=== PATIENT | male | born 1995 | race Caucasian/White ===

== ENCOUNTER 2019-02-18 14:01 | Observation (INO) | payer OTHER ==
--- NOTE | 2019-02-18 15:52 | ED ---
Abdominal Pain/Male - HPI Summary HPI Summary: This pt is a 24 y/o male presenting to [facility] c/o abd pain for the past 30 hours. Pt reports his pain has localized now in the right lower abdomen. He describes his pain as sharp and as waxing and waning in intensity. He rates his abd pain between a 7 and 9 out of 10 in severity. Pt reports he could not sleep last night secondary to pain. Denies nausea, vomiting, chest pain, SOB. Denies any past GI hx. Denies any PMHx or PSHx. Pt admits to rare alcohol use but denies tobacco and drug use. - History of Current Complaint Chief Complaint: EDAbdPain Stated Complaint: RIGHT SIDE ABDOMINAL PAIN PER PT Time Seen by Provider: 02/18/19 15:45 Hx Obtained From: Patient Onset/Duration: Lasting Hours, Still Present Timing: Lasting Hours Severity Currently: Severe Pain Intensity: 9 Pain Scale Used: 0-10 Numeric Location: Discrete At: RLQ Radiates: No Character: Sharp Aggravating Factor(s): Nothing Alleviating Factor(s): Nothing Associated Signs And Symptoms: Negative: Fever, Nausea, Vomiting - Allergies/Home Medications Allergies/Adverse Reactions: Allergies Allergy/AdvReac Type Severity Reaction Status Date / Time No Known Allergies Allergy Verified 02/18/19 14:07 PMH/Surg Hx/FS Hx/Imm Hx Endocrine/Hematology History: Denies: Hx Diabetes Cardiovascular History: Denies: Hx Hypertension - Surgical History Surgical History: None Infectious Disease History: No Infectious Disease History: Denies: Traveled Outside the [place] in Last 30 Days - Family History Known Family History: Positive: Cardiac Disease - grandparents - Social History Alcohol Use: Occasionally Substance Use Type: Reports: None Smoking Status (MU): Never Smoked Tobacco Review of Systems Negative: Fever Negative: Chest Pain Negative: Shortness Of Breath Positive: Abdominal Pain. Negative: Vomiting, Nausea All Other Systems Reviewed And Are Negative: Yes Physical Exam - Summary Physical Exam Summary: VITAL SIGNS: Reviewed. GENERAL: Patient is a well-developed and nourished male who is lying comfortable in the stretcher. Patient is not in any acute respiratory distress. HEAD AND FACE: Normocephalic and atraumatic. EYES: PERRLA, EOMI x 2, No injected conjunctiva. EARS: Hearing grossly intact. Ear canals and tympanic membranes are WNL. MOUTH: Oropharynx within normal limits. NECK: Supple, trachea is midline, no adenopathy, no JVD. CHEST: Symmetric, no tenderness at palpation. LUNGS: Clear to auscultation bilaterally. No wheezing or crackles. CVS: RRR, S1 and S2 present, no murmurs or gallops appreciated. ABDOMEN: Soft, right sided tenderness, more so in the right lower quadrant. No signs of distention. Positive bowel sounds. No rebound, no guarding, and no masses palpated. No abdominal bruit or pulsations. EXTREMITIES: FROM in all major joints, no edema, no cyanosis or clubbing. NEURO: Alert and oriented x 3. No acute neurological deficits. Speech is normal. SKIN: Dry and warm. Triage Information Reviewed: Yes Vital Signs On Initial Exam: Initial Vitals Temp Pulse Resp BP Pulse Ox 98.0 F 92 16 80/47 97 02/18/19 14:03 02/18/19 14:03 02/18/19 14:03 02/18/19 14:03 02/18/19 14:03 Vital Signs Reviewed: Yes Procedures - Sedation Patient Received Moderate/Deep Sedation with Procedure: No Diagnostics - Vital Signs Vital Signs Temp Pulse Resp BP Pulse Ox 02/18/19 15:29 101.5 F 96 16 106/50 96 02/18/19 14:03 98.0 F 92 16 80/47 97 - Laboratory Result Diagrams: 02/18/19 16:28 02/18/19 16:28 Lab Statement: Any lab studies that have been ordered have been reviewed, and results considered in the medical decision making process. Abdominal Pain Male Course/Dx - Course Assessment/Plan: This patient is a 24-year-old male who presents to the emergency department with a chief complaint of having left-sided abdominal pain. results without any significant abnormality except for the wishes of 16.4, creatinine of 1.21, glucose 114, total bili 1.7, CRP of 55.9. In the ED course the patient was able fluids and he did not request any pain medications. Abdominopelvic CT impression: Pending. Patient will be signed out to Dr. Brito at shift change. He will follow the results of the abdominopelvic CT and further disposition for the patient. - Diagnoses Differential Diagnosis/HQI/PQRI: Appendicitis, Bowel Obstruction, Constipation, Diverticulitis Provider Diagnoses: Lower abdominal pain Discharge ED - Sign-Out/Discharge Documenting (check all that apply): Sign-Out Patient Signing out patient TO: Francois Medrano - pending CT Abdomen/Pelvis - Discharge Plan Condition: Stable Disposition: ADMITTED TO [facility] - Billing Disposition and Condition Condition: STABLE Disposition: Admitted to [facility] - Attestation Statements Document Initiated by Scribe: Yes Documenting Scribe: Shannon Mendez Provider For Whom Scribe is Documenting (Include Credential): Jr Lew MD Scribe Attestation: Shannon Grissom, scribed for Jr Lew MD on 02/19/19 at 1846. Scribe Documentation Reviewed: Yes Provider Attestation: The documentation as recorded by the Shannon angeles accurately reflects the service I personally performed and the decisions made by , Jr Lew MD Status of Scribe Document: Viewed
[2019-02-18] MEDS ORDERED: NS 0.9% 1000 ML** 1,000 ML IV ONE (16:06)
[2019-02-18 16:36] LABS: Hematocrit 44 % (42-52); Hemoglobin 15.2 g/dL (14.0-18.0); Mean Corpuscular HGB Conc 34 g/dL (31-36); Mean Corpuscular Hemoglobin 31 pg (27-31); Mean Corpuscular Volume 91 fL (80-94); Mean Platelet Volume 6.7 fL (7.4-10.4); Platelet Count 188 10^3/uL (150-450); Red Blood Count 4.87 10^6 /uL (4.18-5.48); Red Cell Distribution Width 13 % (10-15); White Blood Count 16.4 10^3/uL (3.5-10.8)
[2019-02-18 16:54] LABS: ALT 16 U/L (7-52); AST 16 U/L (13-39); Albumin 4.2 g/dL (3.2-5.2); Albumin/Globulin Ratio 1.5 (1-3); Alkaline Phosphatase 54 U/L (34-104); Anion Gap 6 mmol/L (2-11); BUN/Creatinine Ratio 14.9 (8-20); Blood Urea Nitrogen 18 mg/dL (6-24); C Reactive Protein 55.91 mg/L (<8.01); CO2 Carbon Dioxide 29 mmol/L (22-32); Calcium 9.3 mg/dL (8.6-10.3); Chloride 101 mmol/L (101-111); EGFR African American 90.7 (>60); Globulin 2.8 g/dL (2-4); Glucose 114 mg/dL (70-100); Potassium 3.9 mmol/L (3.5-5.0); Sodium 136 mmol/L (135-145)
[2019-02-18] MEDS ORDERED: Iohexol 300* (CONTRAST) 10 ML SDV IV ONE (17:32)
[2019-02-18 17:58] LABS: ABS Lymphocytes 0.2 10^3/ul (1.0-4.8); ABS Monocytes 0.6 10^3/ul (0-0.8); ABS Neutrophils 15.6 10^3/ul (1.5-7.7); Lymphocyte % 1.5 %
--- NOTE | 2019-02-18 19:23 | ED ---
Progress - Progress Note Progress Note: Patient is received as a sign out from Dr. Lew to Dr. Medrano at 1900 02/18/[address] ABD/PEL results CT ABD/PEL IMPRESSION: 1. Findings consistent with acute appendicitis. No evidence of perforation or abscess. 2. Small amount of free fluid in the pelvis. 3. Possible mild gallbladder wall thickening. No pericholecystic stranding or calcified gallstones. Consider correlation with clinical exam and lab values. Right upper quadrant ultrasound may be helpful to further assess if clinically indicated. 4.Chronic bilateral L5 pars interarticularis defects. No subluxation. THIS REPORT WAS REVIEWED BY DR. MEDRANO. Re-Evaluation - Re-Evaluation First Eval Re-Evaluation Time: 19:38 Comment: Results of CT were discussed with patient, he is agreeable with surgery. Patient is resting comfortably at this time. Course/Dx - Course Course Of Treatment: Patient is received as a sign out from Dr. Lwe to Dr. Medrano at 1900 02/18/[address] ABD/PEL results. CT ABD/PEL IMPRESSION: 1. Findings consistent with acute appendicitis. No evidence of perforation or. abscess. 2. Small amount of free fluid in the pelvis. 3. Possible mild gallbladder wall thickening. No pericholecystic stranding or. calcified gallstones. Consider correlation with clinical exam and lab values. Right upper quadrant ultrasound may be helpful to further assess if clinically. indicated. 4.Chronic bilateral L5 pars interarticularis defects. No subluxation. Patient's case was discussed with Dr. Hensley, Dr. Hensley to admit the patient to his services. - Diagnoses Provider Diagnoses: Lower abdominal pain - Provider Notifications Discussed Care Of Patient With: Jorje Hensley Time Discussed With Above Provider: 20:02 Instructed by Provider To: Other - Patient's case was discussed with Dr. Hensley , Dr. Hensley to admit the patient to his services. Discharge ED - Sign-Out/Discharge Documenting (check all that apply): Patient Departure - admit, Receiving Sign- Out Receiving patient FROM: Jr Lew - Discharge Plan Condition: Stable Disposition: ADMITTED TO [facility] - Billing Disposition and Condition Condition: STABLE Disposition: Admitted to [facility] - Attestation Statements Document Initiated by Scribe: Yes Documenting Scribe: RJ KRISHNA Provider For Whom Scribe is Documenting (Include Credential): PRIYA MEDRANO MD Scribe Attestation: I, RJ KRISHNA, scribed for PRIYA MEDRANO MD on 02/20/19 at 0453. Scribe Documentation Reviewed: Yes Provider Attestation: The documentation as recorded by the colleenibeRJ accurately reflects the service I personally performed and the decisions made by me, PRIYA MEDRANO MD Status of Scribe Document: Viewed
[2019-02-18] MEDS ORDERED: Piperacillin/Tazobac ADVAN(*) 3.375 GM in NS 0.9% 100 ML* 100 ML IVPB ONE (19:41)
[2019-02-18] MEDS ORDERED: NS 0.9% 1000 ML** 2,000 ML IV ONE (19:42)
[2019-02-18] MEDS ORDERED: Morphine 4 MG/ML VIAL (1 ml) 4 MG/ML VIAL IV ONE (20:07)
[2019-02-18 20:20] LABS: Urine Appearance Clear; Urine Bilirubin Negative (Negative); Urine Blood Negative (Negative); Urine Color Yellow; Urine Glucose Negative (Negative); Urine Ketones Trace (Negative); Urine Nitrite Negative (Negative); Urine Protein Negative (Negative); Urine Urobilinogen Negative (Negative)
[2019-02-18] MEDS ORDERED: Zosyn per Pharmacy* NOTE FOLLOW UP PRN (20:23)
[2019-02-18] MEDS ORDERED: D5W 1/2 NS KCl 20 Meq 1000 ML* 1,000 ML IV SCH (20:23)
[2019-02-18] MEDS ORDERED: NS 0.9% w/ 20 Meq KCL 1000 ML* 1,000 ML IV SCH (21:00)
[2019-02-18] MEDS ORDERED: fentaNYL* 50 MCG/ML 2 ML VIAL (100 MCG VIAL) ONE (23:33)
[2019-02-18] MEDS ORDERED: Midazolam* 1 MG/ML 5 ML VIAL (5 MG) ONE (23:33)
[2019-02-18] MEDS: ZOSYN 3.375 GM Q8H per EXTENDED INFUSION IVPB SCH ×2 (23:56)
[2019-02-19] MEDS ORDERED: Piperacillin/Tazobac (*) 3.375 GM BAG IVPB SCH
[2019-02-19] MEDS ORDERED: Buffered Lidocaine 1% SYRIN* 1 ML/SYRINGE INTRADERM ONE (00:10)
[2019-02-19] MEDS ORDERED: Naloxone* 0.4 MG/ML 1 ML VIAL IV PRN (00:50)
[2019-02-19] MEDS ORDERED: Acetaminophen IV 1GM/100ML * 1,000 MG/100 ML VIAL IVPB ONE (00:50)
[2019-02-19] MEDS ORDERED: HYDROmorphone INJ1* 1 MG/ML SYRINGE IV PRN (00:50)
[2019-02-19] MEDS ORDERED: DiMENhydriNATE IV* 50 MG/ML VIAL IV PUSH PRN (00:50)
[2019-02-19] MEDS ORDERED: Bupivacaine 0.25% EPI 200,000* 30 ML SDV ONE (00:52)
[2019-02-19] MEDS ORDERED: Rocuronium* 10 MG/ML VIAL ONE (01:14)
[2019-02-19] MEDS ORDERED: DiMENhydriNATE IV* 50 MG/ML VIAL ONE (01:20)
[2019-02-19] MEDS ORDERED: Ketorolac INJ* 30 MG/ML 1 ML VIAL ONE (01:20)
[2019-02-19] MEDS ORDERED: Ondansetron INJ* 2 MG/ML VIAL ONE (01:20)
[2019-02-19] MEDS ORDERED: Dexamethasone IV* 4 MG/ML 1 ML (4 MG) ONE (01:20)
[2019-02-19] MEDS ORDERED: Propofol* 10 MG/ML 20 ML BTL ONE (01:20)
[2019-02-19] MEDS ORDERED: Succinylcholine* 20 MG/ML 10 ML VIAL ONE (01:20)
[2019-02-19] MEDS ORDERED: fentaNYL* 50 MCG/ML 2 ML VIAL (100 MCG VIAL) ONE (01:26)
[2019-02-19] MEDS ORDERED: Acetaminophen IV 1GM/100ML * 100 ML ONE (01:57)
[2019-02-19] MEDS ORDERED: Ondansetron INJ* 2 MG/ML VIAL IV PRN (02:07)
[2019-02-19] MEDS ORDERED: Ibuprofen TAB* 600 MG PO PRN (02:07)
[2019-02-19] MEDS ORDERED: Acetaminophen TAB* 325 MG PO PRN (02:07)
[2019-02-19] MEDS ORDERED: oxyCODONE/Acetamin 5/325 MG* TAB PO PRN (02:07)
[2019-02-19] MEDS ORDERED: D5W 1/2 NS KCl 20 Meq 1000 ML* 1,000 ML IV SCH (02:11)
--- NOTE | 2019-02-19 02:13 | OP ---
Operative Report - Blank - Operative Report Date of Operation: 02/19/19 Note: PREOP DX: ACUTE APPENDICITIS POSTOP DX: SAME PROC: LAP APPENDECTOMY SURG:MECENAS ASSIST: NONE ANES: GET; EBL: MINIMAL IVF: LR SPEC: APPENDIX DRAIN: NONE COMPL:NONE FINDINGS: ACUTE APPENDICITIS WITHOUT RUPTURE OR GANGRENE
--- NOTE | 2019-02-19 05:04 | OP ---
CC: [facility] * DATE OF OPERATION: 02/19/19 - ROOM #331 DATE OF : 97 SURGEON: Jorje Hensley MD STRAIGHTENING PRESS OPERATOR: None. ANESTHESIA: General endotracheal. ANESTHESIOLOGIST: Daphne Pacheco MD PRE-OP DIAGNOSIS: Acute appendicitis. POST-OP DIAGNOSIS: Acute appendicitis. OPERATIVE PROCEDURE: Laparoscopic appendectomy. ESTIMATED BLOOD LOSS: Less than 20 mL. IV FLUIDS: Crystalloid. SPECIMEN: Appendix. DRAINS: None. COMPLICATIONS: None. COUNTS: Instrument, needle, and sponge counts correct. DESCRIPTION OF PROCEDURE: The patient was brought to the operating room and placed on the table supine. Sequential compression devices were placed on both lower extremities. General anesthesia was administered. He was positioned and padded appropriately. He received appropriate intravenous antibiotics on the floor. His abdomen was prepped and draped in the usual sterile fashion. Time- out was performed. Local anesthetic was infiltrated into the skin and soft tissue prior to making each incision. Entry to the abdomen was through a transumbilical vertical incision using an open technique. After accessing the peritoneal cavity, a 12- mm trocar was placed and carbon dioxide was insufflated to a pressure of 15 mmHg. Under direct visualization, a 5-mm trocar was placed in the suprapubic midline and in the left lower quadrant. The appendix was identified in the right lower quadrant. It was enrobed in omentum. This was pulled free and the appendix appeared to be hyperemic with no evidence of gangrene or perforation. The base of the appendix was identified. The appendix was elevated and then Endo FRANKLYN stapler with a diaz cartridge was used to divide the appendix and the appendix mesentery in one firing. Hemostasis was assured. The appendix was placed in a retrieval bag and retrieved through the umbilical site. The ports were then removed under direct visualization and carbon dioxide was released. The umbilicus was closed with 0 Vicryl in figure- of-eight fashion to approximate the fascia. Skin incisions were all closed with 4- 0 Monocryl in subcuticular fashion. DermaFlex applied. The patient tolerated the procedure well, was extubated, and transferred to Recovery in stable condition. [id number]/[facility] #: [id number] [facility]
[2019-02-19] MEDS: ZOSYN 3.375 GM Q8H per EXTENDED INFUSION IVPB SCH ×2 (08:06)
[2019-02-19 11:38] VITALS: BP 102/55
--- NOTE | 2019-02-19 13:22 | PN ---
Progress Note - Progress Note Date of Service: 02/19/19 Note: S: POD #0, s/p lap appy. Doing well. Pablo diet. No N/V. O: Vital Signs - 8 hr 02/19/19 02/19/19 02/19/19 07:23 08:00 09:33 Temperature 98.4 F 97.5 F Pulse Rate 60 85 Respiratory 12 18 16 Rate Blood Pressure 105/44 112/58 (mmHg) O2 Sat by Pulse 96 97 Oximetry 02/19/19 11:37 Temperature 98.2 F Pulse Rate 74 Respiratory 12 Rate Blood Pressure 102/55 (mmHg) O2 Sat by Pulse 100 Oximetry Gen: sitting up in bed; NAD Heart: reg Lungs: clear Abd: lap sites ok; soft; mild incisional tenderness only A: s/p lap appy for acute nonruptured appendicitis, doing well P: home today; parents will be staying a couple of days with him; instructions reviewed; office f/u next wk
--- NOTE | 2019-02-19 21:00 | DS ---
CC: Dr. Amalia Stauffer, [facility], [place], [place] * DISCHARGE SUMMARY: DATE OF ADMISSION: 02/19/19 DATE OF DISCHARGE: 02/19/19 ATTENDING SURGEON: Dr. Jorje Hensley.* (DICTATED BY VICENTE MCKEON) HOSPITAL COURSE: Please refer to admission history and physical and operative note for details. The patient was taken to the operating room in the early hours of 02/19/19 and underwent laparoscopic appendectomy for acute nonruptured appendicitis. He has had an uneventful postoperative course and as of the afternoon of 02/19/19, he is tolerating diet well and pain is well controlled. Vital signs are stable. See separate progress note. Instructions were reviewed regarding diet, wound care, and activity. A prescription for Percocet was e-sent to his pharmacy at [place]. He has a followup appointment with our office on 02/27/19. He is discharged to home with his parents in good condition. VICENTE MCKEON [id number]/[facility] #: [id number] [place]
== END 2019-02-19 15:15 | disposition home or self-care (01) ==
LOC: ED 14:01 → INTOOBSV 21:25 → SSU 21:25
PROVIDERS: ADMIT Surgery; ATTEND Surgery
DX: K35.80 Unspecified acute appendicitis (principal); R10.9 Unspecified abdominal pain
CPT/HCPCS: 36415; 74177; 80053; 81003; 83605; 83690; 85025; 86140; 88304; 96360; 96361; 96365; 99284; A9270-GY; C1776; G0378; J0330; J1100; J1240; J1885; J2250; J2270; J2405; J2543; J2704; J3010; Q9967

== ENCOUNTER 2019-02-20 10:07 | Emergency (ER) | payer OTHER ==
--- NOTE | 2019-02-20 10:27 | ED ---
HPI Febrile Illness - HPI Summary HPI Summary: 24 year old M referred to [facility] by Dr. Hensley's office accompanied by parents complains of fever since yesterday 02/19/19 s/p appendectomy. Patient had appendectomy yesterday 02/19/[address] Hensley. States he developed fever intermittently after appendectomy which became more persistent yesterday PM. Had fever 104.8F at 23:00 yesterday 02/19/19. Reports chills, intermittent nausea, no worsening abdominal pain. Reports "liquid-y" bowel movements but states they are more formed this morning than previous. Patient denies cough, rhinorrhea, sore throat, chest pain, shortness of breath, fecal or urinary dysfunction. Mother states they called Dr. Hensley's office this morning, was referred to his office or ED, and decided to go to ED. The patient rates the pain 2/10 in severity. Symptoms aggravated by nothing. Symptoms alleviated by Tylenol, last taken 23:00 02/19/19, and Advil, last taken 19:00 02/19/19. No OTC medications this morning prior to arrival. States he has had some water, chapin perry, cranberry juice, and waffles since the surgery. Hx common colds but today's sx are not similar to them. - History of Current Complaint Chief Complaint: EDFever Time Seen by Provider: 02/20/19 10:15 Hx Obtained From: Patient, Family/Fur Liner - parents Onset/Duration: Started Hours Ago, Still Present Timing: Constant, Intermittent Current Severity: Mild Pain Intensity: 2 Pain Scale Used: 0-10 Numeric Aggravating Factors: Nothing Alleviating Factors: OTC Medicine Associated Signs and Symptoms: Negative - increasing abdominal pain, cough, rhinorrhea, sore throat, chest pain, shortness of breath, fecal or urinary dysfunction, Chills, Nausea, Other: - "liquid-y" bowel movements - Allergy/Home Medications Allergies/Adverse Reactions: Allergies Allergy/AdvReac Type Severity Reaction Status Date / Time No Known Allergies Allergy Verified 02/20/19 10:09 PMH/Surg Hx/FS Hx/Imm Hx Endocrine/Hematology History: Denies: Hx Diabetes Cardiovascular History: Denies: Hx Hypertension Respiratory History: Reports: Hx Seasonal Allergies - Nasal [place] PRN History: Denies: Hx Renal Disease Sensory History: Reports: Hx Contacts or Glasses Denies: Hx Hearing Aid Opthamlomology History: Reports: Hx Contacts or Glasses - Surgical History Surgery Procedure, Year, and Place: [place] Teeth extraction 2017. Appendectomy 02/19/19 Hx Anesthesia Reactions: No Infectious Disease History: No Infectious Disease History: Denies: Traveled Outside the [place] in Last 30 Days - Family History Known Family History: Positive: Cardiac Disease - grandparents - Social History Alcohol Use: Occasionally Hx Substance Use: No Substance Use Type: Reports: None Hx Tobacco Use: No Smoking Status (MU): Never Smoked Tobacco Review of Systems Positive: Fever, Chills ENT: Negative - rhinorrhea Negative: Sore Throat Negative: Chest Pain Negative: Shortness Of Breath, Cough Gastrointestinal: Negative - worsening abdominal pain, fecal dysfunction Positive: Nausea, Other - "liquid-y" bowel movements Positive: no symptoms reported Positive: Arthralgia, Myalgia Negative: Headache All Other Systems Reviewed And Are Negative: Yes Physical Exam - Summary Physical Exam Summary: VITAL SIGNS: Reviewed. GENERAL: Patient is a well-developed and nourished male who is lying comfortable in the stretcher. Patient is not in any acute respiratory distress. HEAD AND FACE: Normocephalic and atraumatic. EYES: PERRLA, EOMI x 2, No injected conjunctiva. EARS: Hearing grossly intact. Ear canals and tympanic membranes are WNL. MOUTH: Oropharynx within normal limits. NECK: Supple, trachea is midline, no adenopathy, no JVD. CHEST: Symmetric, no tenderness at palpation. LUNGS: Clear to auscultation bilaterally. No wheezing or crackles. CVS: RRR, S1 and S2 present, no murmurs or gallops appreciated. ABDOMEN: Soft. There is tenderness in the right lower abdomen. Surgical scars are clean, dry, in tact. There is some slight lymphadenopathy in right inguinal area. EXTREMITIES: FROM in all major joints, no edema, no cyanosis or clubbing. NEURO: Alert and oriented x 3. No acute neurological deficits. Speech is normal. SKIN: Dry and warm. Triage Information Reviewed: Yes Vital Signs On Initial Exam: Initial Vitals Temp Pulse Resp BP Pulse Ox 98.8 F 88 18 128/62 96 02/20/19 10:02/20/19 10:02/20/19 10:09 02/20/19 10:09 02/20/19 10:09 Vital Signs Reviewed: Yes Procedures - Sedation Patient Received Moderate/Deep Sedation with Procedure: No Diagnostics - Vital Signs Vital Signs Temp Pulse Resp BP Pulse Ox 02/20/19 10:09 98.8 F 88 18 128/62 96 - Laboratory Result Diagrams: 02/20/19 10:54 02/20/19 10:54 Lab Statement: Any lab studies that have been ordered have been reviewed, and results considered in the medical decision making process. - Radiology CXR Radiology Interpretation Completed By: Radiologist Summary of Radiographic Findings: No evidence for pneumonia. No evidence for acute intrathoracic disease. ED physician has reviewed this report. - Ultrasound Abdomen Ultrasound Interpretation Completed By: Radiologist Summary of Ultrasound Findings: #. Normal sonographic appearance of the liver. #. Suggestion of mild biliary sludge at the gallbladder. Negative for cholelithiasis or secondary findings to suggest acute cholecystitis. #. Negative for biliary dilatation. #. Negative for ascites. #. Equivocal increased cortical echogenicity at the kidney which may be seen with medical renal disease. Correlate with renal function tests. ED physician has reviewed this report. Re-Evaluation - Re-Evaluation First Eval Re-Evaluation Time: 15:00 Comment: agrees to d/c Course/Dx - Course Assessment/Plan: This patient is a 24-year-old male who presents to the emergency department with a chief complaint of having fever. Patient had an appendectomy yesterday with Dr. Hensley and since the patient has been having fevers. Patient denies any headache, denies any neck pain, denies any URI symptoms or UTI symptoms. Patient had diarrhea but it is now improving. He denies any nausea/vomiting. He has been taking Tylenol or ibuprofen. Bryan ZHANG from surgery at bedside. He agrees with management at this time. In the ED course, the patient is febrile. Therefore, he was given IV fluids and ibuprofen. Blood test results without any significant abnormality except for hemoglobin of 41, platelets 115, INR 1.47, glucose 125, total bili is 1.8, AST is 121, AST is 168. Total protein 6.3 and BNP is 135. Lactic acid is normal. Dr. Hensley at bedside and agrees with work up. Recommends an infectious disease consult. I discussed the case with Dr. Alexis who agrees with current management and also recommends a Tick-Borne illness panel. UA negative for UTI. Hepatitis panel negative. [place] Screen negative. Bryan ZHANG spoke with Dr. Hensley and they requested for the patient to be discharged and followed up at their office. They think the patient is safe for discharge. I instructed the patient and their parents that if patient continue with fever or develop any other symptoms to return to the ED for further workup and management. Patient and parents understand and agree. At discharge, patient is hemodynamically stable and A+O x 3. - Febrile Illness Differential Diagnoses: Abscess, Bacteremia, Cellulitis, Endocarditis, GI Disease, Medication Reaction, Pneumonia, Pyelonephritis, Sepsis - Diagnoses Provider Diagnoses: Fever - Provider Notifications Discussed Care Of Patient With: Jason Clemens Time Discussed With Above Provider: 10:55 Instructed by Provider To: Other - Bryan Clemens, surgical PA, evaluted the patient and agrees with management at this time. 1300 Dr. Hensley, surgery, came to the ED to evaluate the patient and recommended consulting infectious disease. [address] Alexis, infectious disease, who recommends we send for tick borne illness panel, admission and observation, no antibiotics until we find out if he has an infection. 1343 Spoke with Bryan Clemens who will come to the ED to see the patient. 1447 Bryan Clemens came to the ED to reassess the patient, states that he reviewed all the bloodwork and understands the recommendations from Dr. Alexis. He requests for the patient to be discharged home with follow up on Saturday 02/24 in the office. Discharge ED - Sign-Out/Discharge Documenting (check all that apply): Patient Departure - Discharge - Discharge Plan Condition: Stable Disposition: HOME Meds/Orders/Equipment: CBC Auto Diff Time Frame: 02/24/19, Location: None Selected Comprehensive Metabolic Panel [CHEM] Time Frame: 02/24/19, Location: None Selected Patient Education Materials: Fever in Adults (ED) Referrals: Jason Clemens PA [Physician Switchboard Operator Receptionist] - 02/24/19 Jorje Hensley MD [Medical Doctor] - 02/24/19 Additional Instructions: Follow up with surgery at your appointment on 02/24/19. Return to the Emergency Department for new or worsening symptoms. - Billing Disposition and Condition Condition: STABLE Disposition: Home - Attestation Statements Document Initiated by Scribe: Yes Documenting Scribe: Eunice Wright Provider For Whom Scribe is Documenting (Include Credential): Jr Lew MD Scribe Attestation: I, Eunice Wright, scribed for Jr Lew MD on 02/21/19 at 0736. Scribe Documentation Reviewed: Yes Provider Attestation: The documentation as recorded by the scribe, Eunice Wright accurately reflects the service I personally performed and the decisions made by me, Jr Lew MD Status of Scribe Document: Viewed
[2019-02-20] MEDS ORDERED: NS 0.9% 1000 ML** 1,000 ML IV ONE (10:47)
[2019-02-20] MEDS ORDERED: Acetaminophen TAB* 325 MG PO ONE (10:47)
[2019-02-20] MEDS ORDERED: Ibuprofen TAB* 600 MG PO ONE (10:55)
[2019-02-20 11:07] LABS: ABS Lymphocytes 0.2 10^3/ul (1.0-4.8); ABS Monocytes 0.4 10^3/ul (0-0.8); Eosinophil % 0.2 %; Hematocrit 41 % (42-52); Hemoglobin 14.2 g/dL (14.0-18.0); Lymphocyte % 3.7 %; Mean Corpuscular HGB Conc 35 g/dL (31-36); Mean Corpuscular Hemoglobin 32 pg (27-31); Mean Corpuscular Volume 91 fL (80-94); Mean Platelet Volume 7.3 fL (7.4-10.4); Platelet Count 115 10^3/uL (150-450); Red Blood Count 4.49 10^6 /uL (4.18-5.48); Red Cell Distribution Width 13 % (10-15); White Blood Count 4.6 10^3/uL (3.5-10.8)
[2019-02-20 11:17] LABS: Activated Partial Thrombo Time 28.9 seconds (26.0-38.0); INR 1.47 (0.82-1.09)
[2019-02-20 11:25] LABS: Albumin 3.6 g/dL (3.2-5.2); Albumin/Globulin Ratio 1.3 (1-3); BUN/Creatinine Ratio 14.9 (8-20); Calcium 8.6 mg/dL (8.6-10.3); EGFR African American 111.8 (>60); EGFR Non-African American 92.4 (>60); Globulin 2.7 g/dL (2-4); Potassium 3.5 mmol/L (3.5-5.0); Total Bilirubin 1.9 mg/dL (0.2-1.0); Total Protein 6.3 g/dL (6.4-8.9)
[2019-02-20 11:27] LABS: Troponin I 0.01 ng/mL (<0.03)
[2019-02-20 11:46] LABS: Influenza A Molecular NEGATIVE (Negative); Influenza B Molecular NEGATIVE (Negative)
[2019-02-20 12:18] LABS: Urine Appearance Clear; Urine Bilirubin Negative (Negative); Urine Blood Negative (Negative); Urine Color Amber; Urine Glucose Negative (Negative); Urine Ketones Negative (Negative); Urine Nitrite Negative (Negative); Urine Protein 1+(30 mg/dL) (Negative); Urine Specific Gravity 1.017 (1.010-1.030); Urine Urobilinogen Positive (Negative)
[2019-02-20 12:21] LABS: Urine Bacteria Absent (Absent); Urine Red Blood Cell Trace(0-2/hpf) (Absent); Urine White Blood Cell Trace(0-5/hpf) (Absent)
[2019-02-20 13:53] LABS: Hepatitis B Surface Antigen Nonreactive (Nonreactive)
[2019-02-20 14:10] LABS: Hepatitis C Antibody Negative (Negative)
[2019-02-20 15:18] VITALS: BP 126/65
--- NOTE | 2019-02-20 22:40 | CONS ---
CC: [facility] * SURGICAL CONSULTATION NOTE: DATE OF CONSULT: 02/20/19 - EMERGENCY DEPT ATTENDING SURGEON: Dr. Jorje Hensley. CHIEF COMPLAINT: Postoperative fevers. HISTORY OF PRESENT ILLNESS: This is a generally healthy 24-year-old male who underwent laparoscopic appendectomy for acute nonruptured appendicitis with Dr. Hensley in the [employer] hours of 02/19/19 (see separate operative report). The patient was afebrile on the morning of discharge but was reported to have a temperature of 101 prior to discharge and then two additional temperature measurements that were not reported to the surgical team of 102.9 and 103.3. He was discharged without oral antibiotics. He had called the service late last night 02/19/19 with a temperature of 104.8. He was directed to come to the ED but did respond to oral ibuprofen. However, his temperature returned this morning and he and his parents presented to the ED. He states that in between temperature spikes he feels fine with insignificant abdominal discomfort , good appetite, and tolerance of diet. He denies nausea or vomiting. He denies any other localizing symptoms, i.e. headache, neck pain, sore throat, cough, or urinary symptoms. His T-max in the ED was 103.3 rectally with a repeat after ibuprofen of 99.2. He denies any history of tick bite or likely exposure. No rash. He did eat some lettuce over the break that may have been part of a recall. PHYSICAL EXAMINATION: On initial exam, general, he appeared in no acute distress but did have facial flushing. There were no rashes or lesions of concern. HEENT: Unremarkable. No pharyngeal erythema or exudate. Neck: No lymphadenopathy or tenderness. Heart: Regular rate and rhythm. No murmur noted. Lungs: Clear to auscultation. No rales or wheezes. No rhonchi. Abdomen: Healing laparoscopic incision sites with maximal tenderness at the umbilical incision. Bowel sounds are present and normal. Abdomen is otherwise soft and nontender. Extremities: Otherwise normal. Neurological: Grossly intact. DIAGNOSTIC STUDIES/LAB DATA: Of note, white blood cell count 4600 with a normal differential, platelet count slightly decreased at 115 (normal preoperatively at 188). Basic chemistries, electrolytes, BUN and creatinine were normal. His total bilirubin was mildly elevated at 1.9 versus 1.7 preoperatively (there is a family history of Gilbert syndrome in a brother). His transaminases are also moderately elevated with a AST of 121 and ALT of 168 ; these were both normal on admission. Lactic acid is normal at 1.6. CRP was not measured. Urinalysis shows 1+ protein, positive urobilinogen. An ultrasound of the right upper quadrant shows possible mild sludge in the gallbladder but no stones. The liver itself was normal. There was some equivocal increased cortical echogenicity of the right kidney possibly consistent with medical renal dysfunction though as noted his BUN and creatinine are normal. Hepatitis screen was normal and influenza screen was normal. Chest x- ray was negative for any acute disease. ASSESSMENT AND PLAN: Case was discussed with Dr. Lew, who had also reviewed it with Dr. Alexis from Infectious Disease. Dr. Hensley had also stopped by to see the patient. Dr. Alexis recommended a tick-borne illness panel. Blood cultures have already been drawn and are pending. Dr. Alexis's recommendation was close observation either as an inpatient or outpatient but to hold on antibiotics until the results were back from the above studies. I recommended to the patient and his parents that he maintain a scheduled dosing of ibuprofen 400 mg every 6 hours and alternating p.r.n. with Tylenol if he has any fever spikes. He will continue this for 48 hours and then on a p.r.n. basis with instructions to return to the ED if any significant change in clinical status including but not limited to fever spikes of 100.5 or higher, increased pain, GI symptoms, or other localizing symptoms. I did order a repeat CBC and CMP for Sunday with plan for in-office recheck at that time. Again, the patient and his parents understand that if his clinical condition worsens in any significant way , that he is to call our office and return to the ED. VICENTE MCKEON [id number]/[facility] #: [id number] BERNA[place]
[2019-02-25 14:30] LABS: EBV Capsid Ag IgG Ab Positive (Negative); EBV Capsid Ag IgM Ab Positive (Negative); Epstein-Barr Nuclear Antigen Positive (Negative)
[2019-02-25 22:32] LABS: Anaplasma phagocytophilium <1:64 titer (<1:64); Ehrlichia chaffeensis IgG AB <1:64 titer (<1:64); Lyme Disease Serology Negative (Negative)
--- NOTE | 2019-02-26 17:57 | ED ---
Imaging and Labs Follow Up Follow Up Type: Labs/Cultures Labs/Culture Result: EBV Positive IgG,IgM Patient Communication/Plan: Pt called one time at 0900 and 1757 for results with no answer. Message was left to return call to [facility]. Provider Diagnoses: Fever
== END 2019-02-20 16:00 | disposition home or self-care (01) ==
LOC: ED 10:07
DX: R50.9 Fever, unspecified (principal); Z90.89 Acquired absence of other organs
CPT/HCPCS: 36415; 71046; 76705; 80053; 80074; 81003; 81015; 83605; 83880; 84484; 85025; 85610; 85730; 86308; 86618; 86664; 86665; 86666; 86753; 87040; 87086; 96360; 99283; A9270-GY